=== PATIENT | female | born 1950 | race Caucasian/White ===

== ENCOUNTER 2017-09-11 06:33 | Day surgery (SDC) | payer OTHER ==
[~2017-09-11] VITALS: Ht 160 cm; Wt 79.4 kg
[~2017-09-11 06:33] MED LIST: Aspir 8181 MG; B Complex #11 EACH; CHOL10002; ESCI10; FISH OIL 1,0001 EAC1; IBUP400; L-Lysine500 M1; LISI5; LOVA40; Omeprazole20 M1; TRAM50
== END 2017-09-11 09:00 | disposition home or self-care (01) ==
LOC: ORSCSDS 06:33
PROVIDERS: Internal Medicine Gastroenterology
PROC: 0DBN8ZX Excision of Sigmoid Colon, Via Natural or Artificial Opening Endoscopic, Diagnostic (ICD-10-PCS; principal; 2017-09-11 08:00)
DX: Z12.11 Encounter for screening for malignant neoplasm of colon (principal); D12.5 Benign neoplasm of sigmoid colon; K64.8 Other hemorrhoids; K21.9 Gastro-esophageal reflux disease without esophagitis; F32.9 Major depressive disorder, single episode, unspecified; E78.5 Hyperlipidemia, unspecified; Z79.82 Long term (current) use of aspirin; Z79.899 Other long term (current) drug therapy
CPT/HCPCS: 88305; J0330; J1980; J2405; J7120

== ENCOUNTER → 2020-09-20 | Outpatient (CLI) | payer OTHER | LOC: LAB SHORT 13:06 → LAB 13:06 | DX: L57.8 Other skin changes due to chronic exposure to nonionizing radiation (principal) | CPT/HCPCS: 88305 ==

== ENCOUNTER → 2022-06-25 | Outpatient (CLI) | payer OTHER | END | disposition home or self-care (01) | LOC: LAB SHORT 11:24 → PLD 11:24 | DX: D48.5 Neoplasm of uncertain behavior of skin (principal) | CPT/HCPCS: 88305 ==

== ENCOUNTER 2023-03-22 10:20 | Day surgery (SDC) | payer OTHER ==
[~2023-03-22] VITALS: Ht 160 cm; Wt 73.1 kg
[~2023-03-22 10:20] MED LIST changes: +ASPI81CH PO; +CALCIUM PO; -CHOL10002; -ESCI10; +ESCI10 PO; -IBUP400; +IBUP400 PO; -L-Lysine500 M1; +L-Lysine500 M1 PO; +OXAYDO5 M1 PO; +PROMETHAZINE12.5 M3 PO; +VITAMIN D310 MC4 PO
[2023-03-22] MEDS ORDERED: GLUC500 (10:39)
[2023-03-22] MEDS ORDERED: ELDERTONIC LIQ473 ML (10:40)
[2023-03-22 12:00] VITALS: BP 126/69
== END 2023-03-22 12:17 | disposition home or self-care (01) ==
LOC: ORSCSDS 10:20
PROVIDERS: Specialist
PROC: 0DJD8ZZ Inspection of Lower Intestinal Tract, Via Natural or Artificial Opening Endoscopic (ICD-10-PCS; principal; 2023-03-22 11:30)
DX: Z12.11 Encounter for screening for malignant neoplasm of colon (principal); Z86.010 Personal history of colon polyps; K64.8 Other hemorrhoids; K57.30 Diverticulosis of large intestine without perforation or abscess without bleeding; Z79.899 Other long term (current) drug therapy
CPT/HCPCS: J2704; J7120

== ENCOUNTER 2023-08-11 20:23 | Emergency (ER) | payer OTHER ==
[~2023-08-11] VITALS: Ht 160 cm; Wt 78.0 kg
[~2023-08-11 20:23] MED LIST changes: +ELDERTONIC LIQ473 ML; +GLUC500
[2023-08-11 20:28] VITALS: BP 171/94
== END 2023-08-11 21:53 | disposition home or self-care (01) ==
LOC: ER 20:23
DX: S61.216A Laceration without foreign body of right little finger without damage to nail, initial encounter (principal); W26.0XXA Contact with knife, initial encounter
CPT/HCPCS: 99282

== ENCOUNTER 2025-06-02 10:04 | Day surgery (SDC) | payer OTHER ==
[~2025-06-02] VITALS: Ht 160 cm; Wt 71.1 kg
[~2025-06-02 10:04] MED LIST changes: +EPINEPhrine HCl 1 MG / ML 30ML Vial ONE
[2025-06-02] MEDS ORDERED: DULCOLAX5 MG (10:43)
[2025-06-02] MEDS ORDERED: Tranexamic Acid 100 ML IV ONE (11:17)
[2025-06-02] MEDS ORDERED: Lidocaine 1%-Epineph 1:200000 30 ML SDV ONE (12:12)
[2025-06-02] MEDS ORDERED: Lidocaine HCl 4% 5 ML SDA ONE (12:21)
[2025-06-02] MEDS ORDERED: Dexamethasone Sod Phos 10 MG/ML 1ML VIAL ONE (12:24)
[2025-06-02] MEDS ORDERED: Rocuronium Bromide 10 MG/ML 5ML Injection IV ONE (12:24)
[2025-06-02] MEDS ORDERED: FentaNYL Citrate 50 MCG/ML 2 ML Injection ONE (12:24)
[2025-06-02] MEDS ORDERED: Ketorolac Tromethamine 30mg Vial ONE (12:24)
[2025-06-02] MEDS ORDERED: Ondansetron HCl 2 MG / ML 2ML Vial ONE (12:24)
--- NOTE | 2025-06-02 13:13 | NUR ---
06/02/25 1313 Daniel Rcik TXA 1MG STARTED IN OR BY DR GOTTLIEB AT 1246.
[2025-06-02] MEDS ORDERED: Labetalol HCL 5 MG/ML 4ML Injection (Single Dose) ONE (13:32)
[2025-06-02 14:47] VITALS: BP 147/75
--- NOTE | 2025-06-02 15:06 | NUR ---
06/02/[address] AT BEDSIDE AND ASSESSED PT AND CLEARED FOR DISCHARGE.
== END 2025-06-02 15:22 | disposition home or self-care (01) ==
LOC: ORSCSDS 10:04
PROVIDERS: Otolaryngology
PROC: 09DV4ZZ Extraction of Left Ethmoid Sinus, Percutaneous Endoscopic Approach (ICD-10-PCS; principal; 2025-06-02 11:30)
PROC: 09BQ4ZZ Excision of Right Maxillary Sinus, Percutaneous Endoscopic Approach (ICD-10-PCS; principal; 2025-06-02 11:30)
PROC: 09DU4ZZ Extraction of Right Ethmoid Sinus, Percutaneous Endoscopic Approach (ICD-10-PCS; principal; 2025-06-02 11:30)
DX: J32.0 Chronic maxillary sinusitis (principal); J32.2 Chronic ethmoidal sinusitis; J34.89 Other specified disorders of nose and nasal sinuses
CPT/HCPCS: 88305; 88311; J0165; J1100; J1885; J2003; J2405; J2704; J3010; J7120